=== PATIENT | female | born 1990 | race Caucasian/White ===

== ENCOUNTER 2017-06-30 18:52 | Emergency (ER) | payer MEDICAID ==
[~2017-06-30] VITALS: Ht 157.5 cm; Wt 52.6 kg
[2017-06-30] MEDS ORDERED: SODIUM CHLORIDE FLUSH 10ML SYR IVF ONE (19:30)
[2017-06-30 19:33] LABS: HEMATOCRIT 45.9 % (34.6-47.8); HEMOGLOBIN 15.2 g/dL (11.7-16.4); WHITE BLOOD COUNT 18.3 x10^3/uL (3.4-10)
[2017-06-30 19:44] LABS: BLOOD UREA NITROGEN 14 mg/dL (7-18)
[2017-06-30 19:50] LABS: ASPARTATE AMINO TRANSFERASE 10 U/L (15-37)
[2017-06-30 22:11] VITALS: BP 120/66
== END 2017-06-30 22:14 | disposition home or self-care (01) ==
LOC: ED 21:49
DX: N20.0 Calculus of kidney (principal); Z87.442 Personal history of urinary calculi
CPT/HCPCS: 36415; 74000; 74176; 80053; 81001; 83690; 84703; 85025; 87086; 93005; 99285